=== PATIENT | female | born 1955 | race Caucasian/White ===

== ENCOUNTER 2021-11-14 10:33 | Emergency (ER) | payer OTHER ==
[~2021-11-14] VITALS: Ht 167.6 cm; Wt 68.0 kg
[~2021-11-14 10:33] MED LIST: BACTRIM DS TAB1 EACH PO; PRAVACHOL20 MG PO
[2021-11-14 10:35] VITALS: BP 124/65
== END 2021-11-14 11:02 | disposition home or self-care (01) ==
LOC: ER 10:33
DX: S90.31XA Contusion of right foot, initial encounter (principal); E78.00 Pure hypercholesterolemia, unspecified; I10 Essential (primary) hypertension; Z79.899 Other long term (current) drug therapy; Z88.5 Allergy status to narcotic agent; Z87.891 Personal history of nicotine dependence; X58.XXXA Exposure to other specified factors, initial encounter; Y93.89 Activity, other specified; Y92.89 Other specified places as the place of occurrence of the external cause; Y99.8 Other external cause status